=== PATIENT | male | born 1950 | race African-American/Black ===

== ENCOUNTER 2024-09-02 11:42 | Emergency (ER) | payer OTHER ==
[~2024-09-02] VITALS: Ht 182.9 cm; Wt 91.0 kg
[2024-09-02 11:55] VITALS: TEMP 98.1; O2SAT 99
[2024-09-02] MEDS: SODIUM CHLORIDE 0.9% 1,000 ML IV ONE (12:45)
[2024-09-02 12:58] LABS: BASOPHILS % 0.5 % (0.0-2.0); DIFFERENTIAL COMMENT 0; EOSINOPHILS % 0.4 % (0.0-5.0); HEMOGLOBIN. 11.2 g/dL (14.0-18.0); LYMPHOCYTES % 8.5 % (20.0-50.0); MEAN CORPUSCULAR HEMOGLOBIN 23.8 pg (28.0-32.0); MEAN CORPUSCULAR HGB CONC 31.9 g/dL (31.0-37.0); MEAN CORPUSCULAR VOLUME 74.5 fL (80.0-94.0); MEAN PLATELET VOLUME 8.5 fl (7.4-10.4); NEUTROPHILS % 80.6 % (40.0-76.0); PLATELET 313 x1000/uL (130-400); RED CELL DISTRIBUTION WIDTH 18.8 % (11.6-14.6); WHITE BLOOD COUNT 10.5 x1000/uL (4.5-11.0)
[2024-09-02 13:08] LABS: CHLORIDE 102 mEq/L (98-107); POTASSIUM 3.5 mEq/L (3.5-5.1); SODIUM 136 mEq/L (136-145)
[2024-09-02 13:09] LABS: CALCIUM 9.2 mg/dL (8.7-10.4); CARBON DIOXIDE 28 mEq/L (21-32)
[2024-09-02 13:14] LABS: GLUCOSE 114 mg/dL (70-105); UREA NITROGEN BLOOD 21 mg/dL (9-23)
[2024-09-02 13:16] LABS: TROPONIN I HIGH SENSITIVITY 4 ng/L (3.0-53)
[2024-09-02 13:49] LABS: ETHANOL BLOOD < 10 mg/dL (<10)
[2024-09-02 16:38] VITALS: BP 133/88; PULSE 56; RESP 14; O2SAT 97
== END 2024-09-02 16:26 | disposition short-term general hospital (02) ==
LOC: EDSEX 11:42 → ER 13:07 → EDBEDREQ 14:05 → CANBEDREQ 14:35 → ER 16:26
DX: R55 Syncope and collapse (principal); E78.00 Pure hypercholesterolemia, unspecified; I10 Essential (primary) hypertension; Z85.9 Personal history of malignant neoplasm, unspecified
CPT/HCPCS: 80048; 80320; 83880; 85025; 84484; 36415; 71045; 70450; 93005; 96360; 99285; J7030; 99284; G0480